=== PATIENT | male | born 1965 | race African-American/Black ===

== ENCOUNTER 2022-02-26 21:36 | Emergency (ER) | payer OTHER ==
[2022-02-26] MEDS ORDERED: Diazepam 5 MG Tab PO ONE (22:46)
[2022-02-26] MEDS ORDERED: Dexamethasone 10 MG/ML SDV IM STA (22:47)
[2022-02-26] MEDS ORDERED: Acetaminophen/oxyCODONE 325-10 MG Tab PO ONE (23:39)
== END 2022-02-27 | disposition home or self-care (01) ==
LOC: MW.ED 21:36
DX: S39.012A Strain of muscle, fascia and tendon of lower back, initial encounter (principal); F17.210 Nicotine dependence, cigarettes, uncomplicated; E78.00 Pure hypercholesterolemia, unspecified; Z79.899 Other long term (current) drug therapy; Z88.0 Allergy status to penicillin; X58.XXXA Exposure to other specified factors, initial encounter
CPT/HCPCS: 96372; 99283; A9270; J1100; 99282